=== PATIENT | male | born 2000 | race Two or more races ===

== ENCOUNTER 2022-12-23 11:58 | Observation (INO) ==
--- NOTE | 2022-12-23 12:10 | Emergency Department Note ---
Impression & Plan Knee effusion, right, Cellulitis of right leg ED Provider Note NAME: JOE COHEN AGE: 22 SEX: M : 2000 ARRIVES VIA: Walk-In INFORMANT: Patient, ED PROVIDER(S): Abel Haas MD CHIEF COMPLAINT: Knee pain and swelling MEDICAL DECISION MAKING: Patient presented due to concern for a knee pain and effusion. IV was established blood work obtained along with blood cultures and empiric Rocephin. I did place a page out to on-call orthopedist Dr. Goodson for evaluation of the patient given concern worsening symptoms in setting of recent knee arthrocentesis and antibiotic use. Bloodwork shows normal white count hemoglobin and platelet count. Kidney function is unremarkable. Glucose of 36. The patient related that he had gone light weightlifting this morning and did not eat. Patient was given an amp of D50. The patient does have elevated ESR CRP and procalcitonin. Vancomycin was ordered. Dr. Goodson does not recommend any washout does not believe the patient has septic arthritis but does believe the patient would benefit from admission with IV antibiotics. Patient was admitted to Dr. Goodson. Prior /Outside records reviewed: Did review prior orthopedic consultation from Dr. Law from December 17. The patient did have knee arthrocentesis completed at that time. I did review the patient's joint analysis which showed only 85 WBCs any polynuclear percentage of only 18%. Synovial color was pale yellow and clear in appearance. Differential diagnosis: Cellulitis, abscess, gout, pseudogout, septic arthritis among others were considered Diagnostics, as interpreted by me: ECG: None Cardiac monitoring: An order was placed for continuous cardiac monitoring. The monitor shows a rate of 67 with sinus rhythm. Patient was placed on pulse oximetry Medical decision rules: None Imaging studies: See below I informally reviewed the patient's knee x-ray which does not show obvious fracture dislocation HPI: Patient presents due to concern for right knee swelling and pain. The patient was seen here on the for similar symptoms and did have a knee arthrocentesis at that time and was placed on Bactrim. Since then the patient states that he was feeling unwell this past week with more systemic symptoms including body aches fevers and chills. Patient states that he does feel better today. Patient denies any injury or trauma to the area. Patient states he has been compliant with his antibiotics. The patient did not follow-up in clinic this week. 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 Patient denies any nausea vomiting no chest pain or shortness of breath. The patient has noticed some increasing redness and stiffness as well as swelling to the right knee and more distally down the leg. PAST MEDICAL HISTORY: See Below PAST SURGICAL HISTORY: See Below SOCIAL HISTORY: See Below HOME MEDICATIONS: See Below ALLERGIES: See Below VITALS: See Below PHYSICAL EXAMINATION: GENERAL: NAD, non-toxic. EYE EXAM: Normal conjunctiva. PERRL, no anisocoria and EOM's grossly intact w/o pain. OROPHARYNX: Moist mucus membranes, grossly normal dentition. Ears: Cauliflower ear noted. NECK: Supple, no nuchal rigidity, no adenopathy, non-tender. No signs of meningismus. FROM of the neck with good chin to chest and neck extension. No stridor. LUNGS: Clear to auscultation. Normal chest wall mechanics. HEART: NSR, no MRG. ABDOMEN: Abdomen soft, non-tender, no masses, no rebound or guarding. BACK: No CVA TTP. SKIN: No rashes and no bruising. UPPER EXTREMITIES: Upper extremities are grossly normal. LOWER EXTREMITIES: Right-sided knee effusion with erythema and swelling distally to the knee joint, good range of motion. NEURO EXAM: A&O x3, cranial nerves II-XII grossly intact, normal speech, moves all 4 extremities. Past Med/Surg History Medical History No significant past medical history Surgical History No pertinent past surgical history Social History Smoking Status: Never smoker Second Hand Exposure: No; Do You Dip or Chew Tobacco: No; Hx Alcohol Use: No Hx Substance Use: No Preferred Language: Belizean Communication Ability: Effective Pierogi Maker Required: No Beliefs That Will Affect Care: None Current Living Situation: Alone Other Information That Helps Us Care for You: No Feels Safe at Home: Yes Safety Concerns: Feels Safe At This Time Assistive Devices: Hospital Bed Allergies Allergies Allergy/AdvReac Type Severity Reaction Status Date / Time No Known Allergies Allergy Unverified 12/17/22 09:20 Home Meds Home Medications Medication Instructions Recorded Confirmed ibuprofen 200 mg tablet (Advil) 200 mg PO Q6H PRN Pain 12/23/22 12/23/22 Previous Rx's Medication Instructions Recorded mupirocin 2 % topical ointment 1 applic topical TID #22 grams 12/17/22 sulfamethoxazole 800 1 tab PO BID 7 days #14 tabs 12/17/22 mg-trimethoprim 160 mg tablet (Bactrim DS) Results & Data (ED) Vital Signs Vital Signs - 24 hr 12/23/22 12:05 12/23/22 13:18 12/23/22 13:18 Temperature 36.5 C Temperature Source Temporal Artery Scan Pulse Rate 91 H Pulse Rate [Apical] 71 Respiratory Rate 18 14 Respiratory Effort / Characteristics Non-Labored Spontaneous Respiratory Depth Normal Blood Pressure 113/71 Blood Pressure [Left Arm] 116/67 Blood Pressure Mean 85 Blood Pressure Mean [Left Arm] 83 Pulse Oximetry 100 99 Oxygen Delivery Method Room Air Room Air Room Air Sepsis Recent Fever Within 48 Hours No Sepsis New/Unexplained Change in Mental Status N/A Sepsis Action Taken by Nursing No Action Required Home Medications Current Medication List: was personally reviewed by me Laboratory Data Attestation: I reviewed the patient's lab results. 12/23/22 12:30 12/23/22 12:30 Lab Results 12/23/22 12/23/22 12/23/22 Range/Units 12:30 12:30 12:30 WBC 8.78 (4.8-10.8) K/ul RBC 4.50 L (4.70-6.10) M/uL Hgb 14.3 (14.0-18.0) g/dl Hct 40.6 L (42.0-52.0) % MCV 90.2 (80.0-100.0) fL MCH 31.8 (25.0-34.0) pg MCHC 35.2 (32.0-36.0) g/dL RDW Std Deviation 39.5 (36.4-46.3) fL RDW Coeff of Lisa 11.9 (11.5-14.5) % Plt Count 342 (130-400) K/uL MPV 9.1 L (9.4-12.4) fL Immature Gran % (Auto) 0.2 % Neut % (Auto) 72.2 % Lymph % (Auto) 17.5 % [place] % (Auto) 8.9 % Eos % (Auto) 1.0 % Baso % (Auto) 0.2 % Neut # (Auto) 6.33 (1.40-6.50) K/uL Lymph # (Auto) 1.54 (1.2-3.4) K/uL [place] # (Auto) 0.78 H (0.11-0.59) K/uL Eos # (Auto) 0.09 (0-0.50) K/uL Baso # (Auto) 0.02 (0-0.2) K/uL Immature Gran # (Auto) 0.02 (0.01-0.20) K/uL ESR (0-15) mm/hr Sodium 136 (136-145) mmol/L Potassium 4.7 (3.5-5.1) mmol/L Chloride 101 (98-107) mmol/L Carbon Dioxide 30 (21-32) mmol/L Anion Gap 5 (3-11) BUN 16 (6-23) mg/dl Creatinine 1.17 (0.6-1.4) mg/dl Est Cr Clr Drug Dosing 74.6 ml/min Est GFR ( Amer) 100.5 ml/min Est GFR (Non-Af Amer) 86.7 ml/min BUN/Creatinine Ratio 13.7 (10-20) Glucose 36 L* (70-99(Fasting)) mg/dl POC Glucose (70-99) mg/dl Lactate 1.4 (0.4-2.0) mmol/L Calcium 9.6 (8.6-10.3) mg/dl Magnesium 2.0 (1.7-2.4) mg/dl Total Bilirubin 0.8 (0.2-1.0) mg/dl Direct Bilirubin 0.2 (0-0.2) mg/dl AST 29 (13-39) U/L ALT 20 (7-52) U/L Alkaline Phosphatase 49 (34-104) U/L C-Reactive Protein 5.30 H (0-0.5) mg/dl Total Protein 7.8 (6.0-8.3) gm/dl Albumin 4.2 (3.4-5.0) gm/dl Procalcitonin (0-0.5) ng/ml 12/23/22 12/23/22 12/23/22 Range/Units 12:30 12:30 13:14 WBC (4.8-10.8) K/ul RBC (4.70-6.10) M/uL Hgb (14.0-18.0) g/dl Hct (42.0-52.0) % MCV (80.0-100.0) fL MCH (25.0-34.0) pg MCHC (32.0-36.0) g/dL RDW Std Deviation (36.4-46.3) fL RDW Coeff of Lisa (11.5-14.5) % Plt Count (130-400) K/uL MPV (9.4-12.4) fL Immature Gran % (Auto) % Neut % (Auto) % Lymph % (Auto) % [place] % (Auto) % Eos % (Auto) % Baso % (Auto) % Neut # (Auto) (1.40-6.50) K/uL Lymph # (Auto) (1.2-3.4) K/uL [place] # (Auto) (0.11-0.59) K/uL Eos # (Auto) (0-0.50) K/uL Baso # (Auto) (0-0.2) K/uL Immature Gran # (Auto) (0.01-0.20) K/uL ESR 37 H (0-15) mm/hr Sodium (136-145) mmol/L Potassium (3.5-5.1) mmol/L Chloride (98-107) mmol/L Carbon Dioxide (21-32) mmol/L Anion Gap (3-11) BUN (6-23) mg/dl Creatinine (0.6-1.4) mg/dl Est Cr Clr Drug Dosing ml/min Est GFR ( Amer) ml/min Est GFR (Non-Af Amer) ml/min BUN/Creatinine Ratio (10-20) Glucose (70-99(Fasting)) mg/dl POC Glucose 60 L* (70-99) mg/dl Lactate (0.4-2.0) mmol/L Calcium (8.6-10.3) mg/dl Magnesium (1.7-2.4) mg/dl Total Bilirubin (0.2-1.0) mg/dl Direct Bilirubin (0-0.2) mg/dl AST (13-39) U/L ALT (7-52) U/L Alkaline Phosphatase (34-104) U/L C-Reactive Protein (0-0.5) mg/dl Total Protein (6.0-8.3) gm/dl Albumin (3.4-5.0) gm/dl Procalcitonin 0.77 H (0-0.5) ng/ml 12/23/22 Range/Units 13:50 WBC (4.8-10.8) K/ul RBC (4.70-6.10) M/uL Hgb (14.0-18.0) g/dl Hct (42.0-52.0) % MCV (80.0-100.0) fL MCH (25.0-34.0) pg MCHC (32.0-36.0) g/dL RDW Std Deviation (36.4-46.3) fL RDW Coeff of Lisa (11.5-14.5) % Plt Count (130-400) K/uL MPV (9.4-12.4) fL Immature Gran % (Auto) % Neut % (Auto) % Lymph % (Auto) % [place] % (Auto) % Eos % (Auto) % Baso % (Auto) % Neut # (Auto) (1.40-6.50) K/uL Lymph # (Auto) (1.2-3.4) K/uL [place] # (Auto) (0.11-0.59) K/uL Eos # (Auto) (0-0.50) K/uL Baso # (Auto) (0-0.2) K/uL Immature Gran # (Auto) (0.01-0.20) K/uL ESR (0-15) mm/hr Sodium (136-145) mmol/L Potassium (3.5-5.1) mmol/L Chloride (98-107) mmol/L Carbon Dioxide (21-32) mmol/L Anion Gap (3-11) BUN (6-23) mg/dl Creatinine (0.6-1.4) mg/dl Est Cr Clr Drug Dosing ml/min Est GFR ( Amer) ml/min Est GFR (Non-Af Amer) ml/min BUN/Creatinine Ratio (10-20) Glucose (70-99(Fasting)) mg/dl POC Glucose 116 H (70-99) mg/dl Lactate (0.4-2.0) mmol/L Calcium (8.6-10.3) mg/dl Magnesium (1.7-2.4) mg/dl Total Bilirubin (0.2-1.0) mg/dl Direct Bilirubin (0-0.2) mg/dl AST (13-39) U/L ALT (7-52) U/L Alkaline Phosphatase (34-104) U/L C-Reactive Protein (0-0.5) mg/dl Total Protein (6.0-8.3) gm/dl Albumin (3.4-5.0) gm/dl Procalcitonin (0-0.5) ng/ml Administered Medications Discontinued Medications Dextrose (Dextrose 50% 50 Ml Syringe) 50 ml IV NOW ONE Stop: 12/23/22 13:18 Last Admin: 12/23/22 13:21 Dose: 50 ml Documented By: DEMARIO Sodium Chloride (Nss 1000ml) 1,000 mls @ 999 mls/hr IV .Q1H1M MARCUS Stop: 12/23/22 13:30 Last Infusion: 12/23/22 13:44 Dose: 0 mls/hr Documented By: Admin: 12/23/22 12:43 Dose: 999 mls/hr Documented By: DEMARIO Ceftriaxone Sodium (Rocephin) 2,000 mg in 70 mls @ 140 mls/hr IV NOW STA Stop: 12/23/22 12:49 Last Infusion: 12/23/22 13:17 Dose: 0 mls/hr Documented By: Admin: 12/23/22 12:47 Dose: 140 mls/hr Documented By: DEMARIO Vancomycin HCl 1,250 mg/ (Sodium Chloride) 525 mls @ 200 mls/hr IV NOW ONE Stop: 12/23/22 16:55 Last Admin: 12/23/22 14:47 Dose: 200 mls/hr Documented By: DEMARIO Imaging Data Radiologist's Impression: Knee X-Ray 12/23/22 13:00 XR knee RT 3V HISTORY: 22 years-old Male pain/swelling;redness acute pain and swelling of the right knee COMPARISON: 12/17/2022 TECHNIQUE: 3 views of the right knee FINDINGS: Moderate circumferential soft tissue swelling. No acute fracture, dislocation or large joint effusion. The joint spaces are well-preserved. IMPRESSION: Soft tissue swelling without acute osseous abnormality. ACT 112: Negative or not required by law. The above report was generated using voice recognition software. It may contain grammatical, syntax or spelling errors. Electronically signed by: Johnny Hunter M.D. 12/23/2022 1:25 PM Discharge Plan Visit Data Chief Complaint: Knee Injury/Pain Stated Complaint: R KNEE INFECTION ED Provider: Abel Haas Discharge Problem: Knee effusion, right, Cellulitis of right leg Patient Disposition: Admitted As Inpatient Discharge Instructions Interventions: ED Discharge Assessment Last Done: 12/23/22 16:03
[2022-12-23] MEDS ORDERED: cefTRIAXone SODIUM 2,000 MG/70 ML BAG IV STA (12:20)
[2022-12-23] MEDS ORDERED: SODIUM CHLORIDE 0.9% 1000ML 1,000 ML IV SCH (12:30)
[2022-12-23 12:59] LABS: Basophils # (auto) 0.02 K/uL (0-0.2); Basophils % (auto) 0.2 %; Eosinophils # (auto) 0.09 K/uL (0-0.50); Hematocrit (blood only) 40.6 % (42.0-52.0); Hemoglobin 14.3 g/dl (14.0-18.0); Immature Granulocytes # (auto) 0.02 K/uL (0.01-0.20); Immature Granulocytes % (auto) 0.2 %; Lymphocytes # (auto) 1.54 K/uL (1.2-3.4); Lymphocytes % (auto) 17.5 %; Mean Corpuscular Hemoglobin 31.8 pg (25.0-34.0); Mean Corpuscular Hgb Conc 35.2 g/dL (32.0-36.0); Mean Corpuscular Volume 90.2 fL (80.0-100.0); Mean Platelet Volume 9.1 fL (9.4-12.4); Monocytes # (auto) 0.78 K/uL (0.11-0.59); Monocytes % (auto) 8.9 %; Neutrophils # (auto) 6.33 K/uL (1.40-6.50); Neutrophils % (auto) 72.2 %; Platelet Count 342 K/uL (130-400); RDW Coefficient of Variation 11.9 % (11.5-14.5); RDW Standard Deviation 39.5 fL (36.4-46.3); White Blood Count 8.78 K/ul (4.8-10.8)
[2022-12-23 13:11] LABS: Albumin Level 4.2 gm/dl (3.4-5.0); BUN Creatinine Ratio 13.7 (10-20); Bilirubin Direct 0.2 mg/dl (0-0.2); Bilirubin,Total 0.8 mg/dl (0.2-1.0); Calcium 9.6 mg/dl (8.6-10.3); Creatinine Clr Calc Pharmacy 74.6 ml/min; Est GFR (African American) 100.5 ml/min; Est GFR (Non-African American) 86.7 ml/min; Potassium 4.7 mmol/L (3.5-5.1); Total Protein 7.8 gm/dl (6.0-8.3)
[2022-12-23] MEDS ORDERED: DEXTROSE 50% 50 ML SYRINGE IV ONE (13:17)
--- NOTE | 2022-12-23 13:28 | XRay Report ---
XR knee RT 3V HISTORY: 22 years-old Male pain/swelling;redness acute pain and swelling of the right knee COMPARISON: 12/17/2022 TECHNIQUE: 3 views of the right knee FINDINGS: Moderate circumferential soft tissue swelling. No acute fracture, dislocation or large joint effusion . The joint spaces are well-preserved. IMPRESSION: Soft tissue swelling without acute osseous abnormality. ACT 112: Negative or not required by law. The above report was generated using voice recognition software. It may contain grammatical, syntax o r spelling errors. Electronically signed by: Johnny Hunter M.D. 12/23/2022 1:25 PM
[2022-12-23 13:46] LABS: C Reactive Protein 5.3 mg/dl (0-0.5)
[2022-12-23] MEDS ORDERED: VANCOMYCIN CONSULT ACTIVE PRN ×3 (14:08→14:18)
[2022-12-23] MEDS ORDERED: VANCOMYCIN HCL 1,250 MG in SODIUM CHLORIDE 0.9% 500 ML IV ONE (14:18)
--- NOTE | 2022-12-23 14:19 | History & Physical Report ---
Date of Service December 23, 2022 Assessment & Plan (1) Cellulitis of right leg: Plan: Findings discussed. Afebrile. White count normal. Inflammatory markers elevated. Previous culture and blood culture negative. No gout. Does not look like Lyme. There is a history of MRSA infection but I do not see any focal MRSA abscess. There is no effusion in the knee or bursa. There is no fluid to aspirate. The knee is enlarged but I think that this is due to soft tissue edema and not a collection of purulent fluid. His range of motion is essentially full and not significantly painful. I think that he has cellulitis on the upper leg area either something that is broken through oral outpatient treatment or has arisen new. I would recommend that he be admitted to the hospital. Start him on intravenous antibiotics. Vancomycin and Rocephin. Elevate rest. We will continue to monitor. He may eat in the I do not see an indication for surgery. I do not think he needs any advanced imaging. X-rays are reviewed and show no evidence of effusion or bony abnormality there is no air within the soft tissues. He reports no injury to the right knee. Unlikely gout or pseudogout. Previous crystal analysis negative. Does not look like a Lyme. 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 history of prior staph and MRSA infection. Approximately 10 days ago he had a scratch in his left armpit which he states became infected. He developed a rash subsequent to that in his left armpit. He was then here to the emergency room December 17 because of right knee pain and swelling which began abruptly last Sunday or Sunday. There is no history of injury to the right knee. He reported having subjective fevers chills and sweats. He felt sick and had malaise. He came to the emergency room. The knee was aspirated by Dr. Law yielding 5 cc of normal-appearing joint fluid. Results of that showed no crystals. White blood cell count was within normal limits and the culture was no growth final. Blood cultures were also negative. His white blood cell count at that time was normal. His sed rate and C-reactive protein were normal or minimally elevated. He was discharged on oral Bactrim 1 pill twice a day. He reports that things were somewhat feeling better. However within the past 24 hours or so he has noted increased redness swelling and pain in the right upper leg which was a new finding. He again reports feeling chills sweats subjective fever malaise and increased pain and swelling. He came to the ER for reevaluation. He was using cold plunge. Lifting weights but not wrestling. At rest his pain is a 0 or 1. The pain is elevated with movement and in particular touching. Allergies Allergy/AdvReac Type Severity Reaction Status Date / Time No Known Allergies Allergy Unverified 12/17/22 09:20 Home Medications Medication Instructions Recorded Confirmed Type mupirocin 2 % topical ointment 1 applic topical TID #22 grams 12/17/22 12/23/22 Rx sulfamethoxazole 800 1 tab PO BID 7 days #14 tabs 12/17/22 12/23/22 Rx mg-trimethoprim 160 mg tablet (Bactrim DS) ibuprofen 200 mg tablet (Advil) 200 mg PO Q6H PRN Pain 12/23/22 12/23/22 History Past Med/Surg History Medical History No significant past medical history Social History Smoking Status: Never smoker Preferred Language: Scottish Feels Safe at Home: Yes Review of Systems Review of Systems: He is otherwise healthy. Physically fit. He did have a MRSA infection of his left thigh treated in [place] with a bedside I&D and was admitted for IV antibiotics. He has no medical allergies. He takes no medicines. Physical Exam Physical Exam: He is awake alert and oriented. He is able to arise independently and can ambulate around the exam room without any limp or significant increase in his leg pain. He does feel a feeling of pressure or swelling into the leg when it is gravity dependent. PT pulse 1+ DP pulse trace. Sensation intact to light touch throughout the foot. He has 5 out of 5 ankle and toe plantarflexion dorsiflexion inversion and eversion strength and 5 out of 5 right knee flexion and extension strength. There is full painless movement of the hip and ankle. Thigh and leg compartments are soft. Range of motion of the knee is 0-130 without significant difficulty. He can pull his knee further to get it to 145 degrees of flexion equal to the opposite side. There is enlargement of the right knee and upper leg area without pitting edema around the knee. He does have trace edema around the upper third of the right leg pretibial area. There is erythema on the upper half of the right leg mainly medial. There is no prepatellar bursal effusion. There is no significant intra-articular effusion. I palpate no fluid collection consistent with an abscess. There are no pustules and there is no drainage. There is tenderness to firmer palpation around the medial and lateral retinacula of the knee. No tenderness to palpation over the extensor mechanism quad tendon patella patellar tendon. Cruciates and collaterals are intact. Skin wrinkles are present around the knee but the skin over the upper leg is tighter and shinnier. MCL has trace laxity with firm endpoint. Knee otherwise stable Examination of the right axilla area reveals a healed scratch in the anterior axillary fold. There about a dozen healed 2 to 4 mm circular areas distal to that into the lateral chest area with dried skin there is no pustules or vesicles no erythema or swelling. Results & Data Results & Data Vital Signs (Past 12 Hours) Vital Signs Temp Pulse Pulse Resp BP BP Pulse Ox 12/23/22 13:18 71 14 116/67 99 12/23/22 13:18 12/23/22 12:05 36.5 C 91 H 18 113/71 100 O2 Del Method 12/23/22 13:18 Room Air 12/23/22 13:18 Room Air 12/23/22 12:05 Room Air Laboratory Results Laboratory Results WBC 8.78 K/ul (4.8-10.8) 12/23/22 12:30 RBC 4.50 M/uL (4.70-6.10) L 12/23/22 12:30 Hgb 14.3 g/dl (14.0-18.0) 12/23/22 12:30 Hct 40.6 % (42.0-52.0) L 12/23/22 12:30 MCV 90.2 fL (80.0-100.0) 12/23/22 12:30 MCH 31.8 pg (25.0-34.0) 12/23/22 12:30 MCHC 35.2 g/dL (32.0-36.0) 12/23/22 12:30 RDW Std Deviation 39.5 fL (36.4-46.3) 12/23/22 12:30 RDW Coeff of Lisa 11.9 % (11.5-14.5) 12/23/22 12:30 Plt Count 342 K/uL (130-400) 12/23/22 12:30 MPV 9.1 fL (9.4-12.4) L 12/23/22 12:30 Immature Gran % (Auto) 0.2 % 12/23/22 12:30 Neut % (Auto) 72.2 % 12/23/22 12:30 Lymph % (Auto) 17.5 % 12/23/22 12:30 [place] % (Auto) 8.9 % 12/23/22 12:30 Eos % (Auto) 1.0 % 12/23/22 12:30 Baso % (Auto) 0.2 % 12/23/22 12:30 Neut # (Auto) 6.33 K/uL (1.40-6.50) 12/23/22 12:30 Lymph # (Auto) 1.54 K/uL (1.2-3.4) 12/23/22 12:30 [place] # (Auto) 0.78 K/uL (0.11-0.59) H 12/23/22 12:30 Eos # (Auto) 0.09 K/uL (0-0.50) 12/23/22 12:30 Baso # (Auto) 0.02 K/uL (0-0.2) 12/23/22 12:30 Immature Gran # (Auto) 0.02 K/uL (0.01-0.20) 12/23/22 12:30 ESR 37 mm/hr (0-15) H 12/23/22 12:30 Sodium 136 mmol/L (136-145) 12/23/22 12:30 Potassium 4.7 mmol/L (3.5-5.1) 12/23/22 12:30 Chloride 101 mmol/L (98-107) 12/23/22 12:30 Carbon Dioxide 30 mmol/L (21-32) 12/23/22 12:30 Anion Gap 5 (3-11) 12/23/22 12:30 BUN 16 mg/dl (6-23) 12/23/22 12:30 Creatinine 1.17 mg/dl (0.6-1.4) 12/23/22 12:30 Est Cr Clr Drug Dosing 74.6 ml/min 12/23/22 12:30 Est GFR ( Amer) 100.5 ml/min 12/23/22 12:30 Est GFR (Non-Af Amer) 86.7 ml/min 12/23/22 12:30 BUN/Creatinine Ratio 13.7 (10-20) 12/23/22 12:30 Glucose 36 mg/dl (70-99(Fasting)) L* 12/23/22 12:30 POC Glucose 116 mg/dl (70-99) H 12/23/22 13:50 Lactate 1.4 mmol/L (0.4-2.0) 12/23/22 12:30 Calcium 9.6 mg/dl (8.6-10.3) 12/23/22 12:30 Magnesium 2.0 mg/dl (1.7-2.4) 12/23/22 12:30 Total Bilirubin 0.8 mg/dl (0.2-1.0) 12/23/22 12:30 Direct Bilirubin 0.2 mg/dl (0-0.2) 12/23/22 12:30 AST 29 U/L (13-39) 12/23/22 12:30 ALT 20 U/L (7-52) 12/23/22 12:30 Alkaline Phosphatase 49 U/L (34-104) 12/23/22 12:30 C-Reactive Protein 5.30 mg/dl (0-0.5) H 12/23/22 12:30 Total Protein 7.8 gm/dl (6.0-8.3) 12/23/22 12:30 Albumin 4.2 gm/dl (3.4-5.0) 12/23/22 12:30 Procalcitonin 0.77 ng/ml (0-0.5) H 12/23/22 12:30 Impressions Knee X-Ray 12/23/22 13:00 XR knee RT 3V HISTORY: 22 years-old Male pain/swelling;redness acute pain and swelling of the right knee COMPARISON: 12/17/2022 TECHNIQUE: 3 views of the right knee FINDINGS: Moderate circumferential soft tissue swelling. No acute fracture, dislocation or large joint effusion. The joint spaces are well-preserved. IMPRESSION: Soft tissue swelling without acute osseous abnormality. ACT 112: Negative or not required by law. The above report was generated using voice recognition software. It may contain grammatical, syntax or spelling errors. Electronically signed by: Johnny Hunter M.D. 12/23/2022 1:25 PM Code Status & VTE Plan VTE Prophylaxis Plan VTE Prophylaxis will be ordered: No Reason for no VTE drug order: Treatment not indicated
[2022-12-23] MEDS ORDERED: ALUMINUM/MAGNESIUM SUSP 30 ML UDC PO PRN (16:39)
[2022-12-23] MEDS ORDERED: ACETAMINOPHEN 325 MG TAB PO PRN (16:39)
[2022-12-23] MEDS ORDERED: KETOROLAC 30 MG/ML VIAL IV PRN (16:39)
[2022-12-23] MEDS ORDERED: MAGNESIUM HYDROXIDE SUSP 30 ML UDC PO PRN (16:39)
--- NOTE | 2022-12-23 16:55 | Pharmacy Report ---
Pharmacy PK ABX Note - Date of Service December 23, 2022 - Assessment and Plan Assessment 22 year old M receiving Vancomycin and Ceftriaxone for treatment of cellulitis. * Day #1 of antimicrobial therapy. Failed outpatient Bactrim DS. * Afebrile. No leukocytosis. SCr 1.17, unknown baseline. Lactate/procal normal. ESR/CRP elevated. * Blood cultures pending. Plan Vancomycin * Loading dose: 1250 mg IV x 1 * Maintenance dose: 1000 mg IV every 12 hours * Regimen is predicted to achieve target AUC/MANPREET of 400-600 mg/L.hr * Random level ordered for: 12/25/22 Ceftriaxone * 1000 mg IV every 24 hours Pharmacy will continue to follow and will adjust dose/frequency as necessary. Thank you. Pharmacy has transitioned to AUC monitoring for vancomycin. AUC/MANPREET is the preferred PK/PD target and is associated with decreased risk of nephrotoxicity compared to traditional trough targets.
[2022-12-23] MEDS: DOCUSATE SODIUM 100 MG CAP PO SCH (21:30)
[2022-12-23] MEDS: VANCOMYCIN HCL 1,000 MG in SODIUM CHLORIDE 0.9% 250 ML IV SCH (21:30)
--- NOTE | 2022-12-24 08:38 | Orthopedic Progress Note ---
Date of Service December 24, 2022 Assessment & Plan (1) Cellulitis of right leg: Plan: Findings discussed. Recommend continuing IV antibiotics. There is improvement but not complete resolution at this time. We will see need for operative intervention. Sterile prep with alcohol and Betadine. The right knee prepatellar bursa is aspirated yielding 19 cc of serosanguineous thin fluid. Not purulent. Preprocedural timeout was performed and verbal informed consent was obtained. Options risks and benefits were discussed. Sophie Baum witness the procedure. Fluid sent for Gram stain aerobic and anaerobic culture cell count with differential and crystal analysis. (2) Prepatellar bursitis, right knee: Admission and Anticipated Discharge Date Admission Date: December 23, 2022 Subjective Feels better. No pain at rest. Discomfort only when he stands. He believes less redness and swelling. Physical Exam Physical Exam: He is able to stand and walk without difficulty. There is full range of motion of the right knee. Intact active straight leg raise. The lateral sided knee tenderness has dissipated but there is still tenderness along the medial knee and medial upper leg. The swelling in the leg is less and the erythema in the upper right medial leg has dissipated. There is no intra-articular effusion but there is a small amount of fluid within the prepatellar bursa. I recommended aspiration and he agreed to proceed. Results & Data Vital Signs (Past 12 Hours) Vital Signs Temp Pulse Resp BP Pulse Ox O2 Del Method 12/23/22 21:10 37.0 C 70 16 110/56 L 98 Room Air Laboratory Results Laboratory Results WBC 8.78 K/ul (4.8-10.8) 12/23/22 12:30 RBC 4.50 M/uL (4.70-6.10) L 12/23/22 12:30 Hgb 14.3 g/dl (14.0-18.0) 12/23/22 12:30 Hct 40.6 % (42.0-52.0) L 12/23/22 12:30 MCV 90.2 fL (80.0-100.0) 12/23/22 12:30 MCH 31.8 pg (25.0-34.0) 12/23/22 12:30 MCHC 35.2 g/dL (32.0-36.0) 12/23/22 12:30 RDW Std Deviation 39.5 fL (36.4-46.3) 12/23/22 12:30 RDW Coeff of Lisa 11.9 % (11.5-14.5) 12/23/22 12:30 Plt Count 342 K/uL (130-400) 12/23/22 12:30 MPV 9.1 fL (9.4-12.4) L 12/23/22 12:30 Immature Gran % (Auto) 0.2 % 12/23/22 12:30 Neut % (Auto) 72.2 % 12/23/22 12:30 Lymph % (Auto) 17.5 % 12/23/22 12:30 [place] % (Auto) 8.9 % 12/23/22 12:30 Eos % (Auto) 1.0 % 12/23/22 12:30 Baso % (Auto) 0.2 % 12/23/22 12:30 Neut # (Auto) 6.33 K/uL (1.40-6.50) 12/23/22 12:30 Lymph # (Auto) 1.54 K/uL (1.2-3.4) 12/23/22 12:30 [place] # (Auto) 0.78 K/uL (0.11-0.59) H 12/23/22 12:30 Eos # (Auto) 0.09 K/uL (0-0.50) 12/23/22 12:30 Baso # (Auto) 0.02 K/uL (0-0.2) 12/23/22 12:30 Immature Gran # (Auto) 0.02 K/uL (0.01-0.20) 12/23/22 12:30 ESR 37 mm/hr (0-15) H 12/23/22 12:30 Sodium 136 mmol/L (136-145) 12/23/22 12:30 Potassium 4.7 mmol/L (3.5-5.1) 12/23/22 12:30 Chloride 101 mmol/L (98-107) 12/23/22 12:30 Carbon Dioxide 30 mmol/L (21-32) 12/23/22 12:30 Anion Gap 5 (3-11) 12/23/22 12:30 BUN 16 mg/dl (6-23) 12/23/22 12:30 Creatinine 1.17 mg/dl (0.6-1.4) 12/23/22 12:30 Est Cr Clr Drug Dosing 74.6 ml/min 12/23/22 12:30 Est GFR ( Amer) 100.5 ml/min 12/23/22 12:30 Est GFR (Non-Af Amer) 86.7 ml/min 12/23/22 12:30 BUN/Creatinine Ratio 13.7 (10-20) 12/23/22 12:30 Glucose 36 mg/dl (70-99(Fasting)) L* 12/23/22 12:30 POC Glucose 116 mg/dl (70-99) H 12/23/22 13:50 Lactate 1.4 mmol/L (0.4-2.0) 12/23/22 12:30 Calcium 9.6 mg/dl (8.6-10.3) 12/23/22 12:30 Magnesium 2.0 mg/dl (1.7-2.4) 12/23/22 12:30 Total Bilirubin 0.8 mg/dl (0.2-1.0) 12/23/22 12:30 Direct Bilirubin 0.2 mg/dl (0-0.2) 12/23/22 12:30 AST 29 U/L (13-39) 12/23/22 12:30 ALT 20 U/L (7-52) 12/23/22 12:30 Alkaline Phosphatase 49 U/L (34-104) 12/23/22 12:30 C-Reactive Protein 5.30 mg/dl (0-0.5) H 12/23/22 12:30 Total Protein 7.8 gm/dl (6.0-8.3) 12/23/22 12:30 Albumin 4.2 gm/dl (3.4-5.0) 12/23/22 12:30 Procalcitonin 0.77 ng/ml (0-0.5) H 12/23/22 12:30 Impressions Knee X-Ray 12/23/22 13:00 XR knee RT 3V HISTORY: 22 years-old Male pain/swelling;redness acute pain and swelling of the right knee COMPARISON: 12/17/2022 TECHNIQUE: 3 views of the right knee FINDINGS: Moderate circumferential soft tissue swelling. No acute fracture, dislocation or large joint effusion. The joint spaces are well-preserved. IMPRESSION: Soft tissue swelling without acute osseous abnormality. ACT 112: Negative or not required by law. The above report was generated using voice recognition software. It may contain grammatical, syntax or spelling errors. Electronically signed by: Johnny Hunter M.D. 12/23/2022 1:25 PM
[2022-12-24 09:01] LABS: Creatinine Clr Calc Pharmacy 105.4 ml/min
[2022-12-24 09:14] LABS: Appearance Synovial Fluid Hazy; Color Synovial Fluid Orange; Mononuclear WBC Synovial 33.9 %; Polynuclear WBC Synovial 66.1 %; RBC Synovial Fluid Auto 12000 /uL; Source Synovial Fluid Knee; WBC Synovial Fluid Auto 2996 /ul (0-200)
[2022-12-24] MEDS: VANCOMYCIN HCL 1,000 MG in SODIUM CHLORIDE 0.9% 250 ML IV SCH (09:17)
[2022-12-24] MEDS: DOCUSATE SODIUM 100 MG CAP PO SCH ×2 (09:18→19:58)
[2022-12-24] MEDS: cefTRIAXone SODIUM 1,000 MG in DEXTROSE 5% 50 ML IV SCH (12:04)
[2022-12-24] MEDS ORDERED: VANCOMYCIN HCL 1,000 MG in SODIUM CHLORIDE 0.9% 250 ML IV SCH (22:00)
[2022-12-25 05:58] LABS: Creatinine Clr Calc Pharmacy 120.8 ml/min; Est GFR (African American) 143.5 ml/min; Est GFR (Non-African American) 123.8 ml/min
--- NOTE | 2022-12-25 08:29 | Pharmacy Report ---
Pharmacy PK ABX Note - Date of Service December 25, 2022 - Assessment and Plan Assessment 22 year old M receiving Vancomycin and Ceftriaxone for treatment of cellulitis. * Day #3 of antimicrobial therapy. Failed outpatient Bactrim DS. * Afebrile. No leukocytosis. SCr 0.94 mg/dL today (down from 1.17 mg/dL yesterday). Lactate/procal normal. ESR/CRP elevated. * Blood cultures (12/23) - no growth to date, knee culture (12/23) pending * Non-purulent serosanguineous fluid aspirated from knee Plan Vancomycin * Current regimen: 1000 mg IV every 12 hours * Random level obtained 12/25/22 resulted as 5.7 mcg/mL. This is predicted to achieve target AUC/MANPREET of 400-600 mg/L.hr * Predicted AUC at steady state: 282 mg/L.hr * Change to 1250 mg IV every 8 hours * Repeat random level ordered for: 12/27/22 Ceftriaxone * 1000 mg IV every 24 hours Pharmacy will continue to follow and will adjust dose/frequency as necessary. Thank you. Pharmacy has transitioned to AUC monitoring for vancomycin. AUC/MANPREET is the preferred PK/PD target and is associated with decreased risk of nephrotoxicity compared to traditional trough targets.
[2022-12-25] MEDS: DOCUSATE SODIUM 100 MG CAP PO SCH ×2 (08:39→20:51)
[2022-12-25] MEDS: VANCOMYCIN HCL 1,250 MG in SODIUM CHLORIDE 0.9% 250 ML IV SCH ×3 (08:42→23:51)
--- NOTE | 2022-12-25 09:58 | Orthopedic Progress Note ---
Date of Service December 25, 2022 Assessment & Plan (1) Prepatellar bursitis, right knee: Plan: Findings discussed. Improving. Still some mild swelling tenderness and redness. I would advise another day of IV antibiotics and elevation. Hopefully further treatment will prevent relapse. Especially in light of his failure of outpatient treatment. Discussed with him that the fluid drained from the prepatellar bursa showed 3000 white blood cells which is indicative of inflammation and not infection. The culture is pending there. Crystal analysis of that fluid was negative. I think that he has a trace amount of fluid in the bursa and the knee from a reactive component rather than a direct infectious component. He should be able to fly later this week. He will have the ability to have medical attention in [place] through their [employer] training center. If he has any problems with worsening symptoms pain redness swelling he should let them be aware. He will be discharged on oral antibiotic. We will reassess him tomorrow and determine appropriateness for discharge after further intravenous antibiotics here. We discussed the risk of blood clots after traveling and he will get up and move around frequently and take aspirin 325 mg p.o. twice daily for DVT prophylaxis the day before and the day of traveling. I will follow-up with him next week when he returns. He should be back next Sunday and I can see him on Sunday. Present on Admission?: Yes (2) Cellulitis of right leg: Present on Admission?: Yes Admission and Anticipated Discharge Date Admission Date: December 23, 2022 Subjective Improved. No pain at rest. When he stands he feels pressure in the front of his knee. Physical Exam Physical Exam: There is full painless range of motion. She does have a trace intra-articular effusion today and a trace prepatellar bursal effusion. There is faint if any redness over the upper medial pretibial area. No erythema around the knee. Induration and swelling are resolving. There still is some tight shiny skin over the upper pretibial area. The foot is not swollen. There is trace edema over the upper leg. The knee shows intact skin wrinkles with less edema. The medial lateral sides of the knee are not tender however he still has some tenderness over the upper medial pretibial area. Results & Data Vital Signs (Past 12 Hours) Vital Signs Temp Pulse Resp BP Pulse Ox O2 Del Method 12/25/22 07:53 36.5 C 58 L 16 106/55 L 99 Room Air Laboratory Results Laboratory Results WBC 8.78 K/ul (4.8-10.8) 12/23/22 12:30 RBC 4.50 M/uL (4.70-6.10) L 12/23/22 12:30 Hgb 14.3 g/dl (14.0-18.0) 12/23/22 12:30 Hct 40.6 % (42.0-52.0) L 12/23/22 12:30 MCV 90.2 fL (80.0-100.0) 12/23/22 12:30 MCH 31.8 pg (25.0-34.0) 12/23/22 12:30 MCHC 35.2 g/dL (32.0-36.0) 12/23/22 12:30 RDW Std Deviation 39.5 fL (36.4-46.3) 12/23/22 12:30 RDW Coeff of Lisa 11.9 % (11.5-14.5) 12/23/22 12:30 Plt Count 342 K/uL (130-400) 12/23/22 12:30 MPV 9.1 fL (9.4-12.4) L 12/23/22 12:30 Immature Gran % (Auto) 0.2 % 12/23/22 12:30 Neut % (Auto) 72.2 % 12/23/22 12:30 Lymph % (Auto) 17.5 % 12/23/22 12:30 [place] % (Auto) 8.9 % 12/23/22 12:30 Eos % (Auto) 1.0 % 12/23/22 12:30 Baso % (Auto) 0.2 % 12/23/22 12:30 Neut # (Auto) 6.33 K/uL (1.40-6.50) 12/23/22 12:30 Lymph # (Auto) 1.54 K/uL (1.2-3.4) 12/23/22 12:30 [place] # (Auto) 0.78 K/uL (0.11-0.59) H 12/23/22 12:30 Eos # (Auto) 0.09 K/uL (0-0.50) 12/23/22 12:30 Baso # (Auto) 0.02 K/uL (0-0.2) 12/23/22 12:30 Immature Gran # (Auto) 0.02 K/uL (0.01-0.20) 12/23/22 12:30 ESR 37 mm/hr (0-15) H 12/23/22 12:30 Sodium 136 mmol/L (136-145) 12/23/22 12:30 Potassium 4.7 mmol/L (3.5-5.1) 12/23/22 12:30 Chloride 101 mmol/L (98-107) 12/23/22 12:30 Carbon Dioxide 30 mmol/L (21-32) 12/23/22 12:30 Anion Gap 5 (3-11) 12/23/22 12:30 BUN 16 mg/dl (6-23) 12/23/22 12:30 Creatinine 0.82 mg/dl (0.6-1.4) 12/25/22 05:20 Est Cr Clr Drug Dosing 120.8 ml/min 12/25/22 05:20 Est GFR ( Amer) 143.5 ml/min 12/25/22 05:20 Est GFR (Non-Af Amer) 123.8 ml/min 12/25/22 05:20 BUN/Creatinine Ratio 13.7 (10-20) 12/23/22 12:30 Glucose 36 mg/dl (70-99(Fasting)) L* 12/23/22 12:30 POC Glucose 116 mg/dl (70-99) H 12/23/22 13:50 Lactate 1.4 mmol/L (0.4-2.0) 12/23/22 12:30 Calcium 9.6 mg/dl (8.6-10.3) 12/23/22 12:30 Magnesium 2.0 mg/dl (1.7-2.4) 12/23/22 12:30 Total Bilirubin 0.8 mg/dl (0.2-1.0) 12/23/22 12:30 Direct Bilirubin 0.2 mg/dl (0-0.2) 12/23/22 12:30 AST 29 U/L (13-39) 12/23/22 12:30 ALT 20 U/L (7-52) 12/23/22 12:30 Alkaline Phosphatase 49 U/L (34-104) 12/23/22 12:30 C-Reactive Protein 5.30 mg/dl (0-0.5) H 12/23/22 12:30 Total Protein 7.8 gm/dl (6.0-8.3) 12/23/22 12:30 Albumin 4.2 gm/dl (3.4-5.0) 12/23/22 12:30 Procalcitonin 0.77 ng/ml (0-0.5) H 12/23/22 12:30 Fluid Comment 12/24/22 08:15 Synovial Source Knee 12/24/22 08:15 Synovial Color [place] 12/24/22 08:15 Synovial Appearance Hazy 12/24/22 08:15 Synovial WBC (Auto) 2996 /ul (0-200) H 12/24/22 08:15 Synovial RBC (Auto) 88898 /uL 12/24/22 08:15 Synovial Polynuclear % 66.1 % 12/24/22 08:15 Synovial Mononuclear % 33.9 % 12/24/22 08:15 Synovial Crystals 12/24/22 08:15 Random Vancomycin 5.7 mcg/ml (10-20) L 12/25/22 05:20 Impressions Knee X-Ray 12/23/22 13:00 XR knee RT 3V HISTORY: 22 years-old Male pain/swelling;redness acute pain and swelling of the right knee COMPARISON: 12/17/2022 TECHNIQUE: 3 views of the right knee FINDINGS: Moderate circumferential soft tissue swelling. No acute fracture, dislocation or large joint effusion. The joint spaces are well-preserved. IMPRESSION: Soft tissue swelling without acute osseous abnormality. ACT 112: Negative or not required by law. The above report was generated using voice recognition software. It may contain grammatical, syntax or spelling errors. Electronically signed by: Johnny Hunter M.D. 12/23/2022 1:25 PM
[2022-12-25] MEDS: cefTRIAXone SODIUM 1,000 MG in DEXTROSE 5% 50 ML IV SCH (12:01)
[2022-12-26 07:58] LABS: Creatinine Clr Calc Pharmacy 119.4 ml/min; Est GFR (African American) 142.7 ml/min; Est GFR (Non-African American) 123.2 ml/min
[2022-12-26] MEDS: VANCOMYCIN HCL 1,250 MG in SODIUM CHLORIDE 0.9% 250 ML IV SCH (08:56)
[2022-12-26] MEDS: DOCUSATE SODIUM 100 MG CAP PO SCH (08:57)
--- NOTE | 2022-12-26 09:19 | Orthopedic Progress Note ---
Date of Service December 26, 2022 Assessment & Plan (1) Prepatellar bursitis, right knee: Plan: Weightbearing as tolerated No growth on fluid or blood cultures Ice with easy wrap Compression with a knee sleeve for Tubigrip Plan is to discharge today with oral antibiotics DVT prophylaxis with 325 mg aspirin twice daily Pain control and inflammation relief with p.o. medication Follow-up with Dr. Goodson next Sunday as scheduled With questions contact our clinic at [phone] (2) Cellulitis of right leg: Admission and Anticipated Discharge Date Admission Date: December 23, 2022 Subjective This 22-year-old male is seen this morning for right knee swelling due to prepatellar bursitis. Aspiration was done and at bedside by Dr. Goodson. There has been no growth in the fluid or blood cultures as of yet. Patient states that the pain and swelling is much better today. He denies fever, chills, sweats, nausea, vomiting, diarrhea or difficulty voiding. He also did not denies any fatigue or malaise. He states that he is received his IV antibiotics. He is anxious to be discharged because he is traveling to [place] in the upcoming days. He plans on returning to the area next Sunday or . Review of Systems Review of Systems: All systems reviewed & are unremarkable except as noted in Subjective Physical Exam Physical Exam: Right knee: Patient has trace effusion over the anterior aspect of the knee but no tenderness, erythema or warmth. Range of motion is from 0 degrees of extension to 140 degrees of flexion. He has visible varus malalignment. There is no laxity with varus or valgus stressing. Quad strength is 5 out of 5. He is able to perform active straight leg raise test actively dorsi and plantarflex foot. He is neurovascular intact in the right lower extremity. Results & Data Vital Signs (Past 12 Hours) Vital Signs Temp Pulse Resp BP Pulse Ox O2 Del Method 12/26/22 08:11 36.5 C 61 16 115/60 98 Room Air Diagnostic Findings Laboratory Results WBC 8.78 K/ul (4.8-10.8) 12/23/22 12:30 RBC 4.50 M/uL (4.70-6.10) L 12/23/22 12:30 Hgb 14.3 g/dl (14.0-18.0) 12/23/22 12:30 Hct 40.6 % (42.0-52.0) L 12/23/22 12:30 MCV 90.2 fL (80.0-100.0) 12/23/22 12:30 MCH 31.8 pg (25.0-34.0) 12/23/22 12:30 MCHC 35.2 g/dL (32.0-36.0) 12/23/22 12:30 RDW Std Deviation 39.5 fL (36.4-46.3) 12/23/22 12:30 RDW Coeff of Lisa 11.9 % (11.5-14.5) 12/23/22 12:30 Plt Count 342 K/uL (130-400) 12/23/22 12:30 MPV 9.1 fL (9.4-12.4) L 12/23/22 12:30 Immature Gran % (Auto) 0.2 % 12/23/22 12:30 Neut % (Auto) 72.2 % 12/23/22 12:30 Lymph % (Auto) 17.5 % 12/23/22 12:30 [place] % (Auto) 8.9 % 12/23/22 12:30 Eos % (Auto) 1.0 % 12/23/22 12:30 Baso % (Auto) 0.2 % 12/23/22 12:30 Neut # (Auto) 6.33 K/uL (1.40-6.50) 12/23/22 12:30 Lymph # (Auto) 1.54 K/uL (1.2-3.4) 12/23/22 12:30 [place] # (Auto) 0.78 K/uL (0.11-0.59) H 12/23/22 12:30 Eos # (Auto) 0.09 K/uL (0-0.50) 12/23/22 12:30 Baso # (Auto) 0.02 K/uL (0-0.2) 12/23/22 12:30 Immature Gran # (Auto) 0.02 K/uL (0.01-0.20) 12/23/22 12:30 ESR 37 mm/hr (0-15) H 12/23/22 12:30 Sodium 136 mmol/L (136-145) 12/23/22 12:30 Potassium 4.7 mmol/L (3.5-5.1) 12/23/22 12:30 Chloride 101 mmol/L (98-107) 12/23/22 12:30 Carbon Dioxide 30 mmol/L (21-32) 12/23/22 12:30 Anion Gap 5 (3-11) 12/23/22 12:30 BUN 16 mg/dl (6-23) 12/23/22 12:30 Creatinine 0.83 mg/dl (0.6-1.4) 12/26/22 06:53 Est Cr Clr Drug Dosing 119.4 ml/min 12/26/22 06:53 Est GFR ( Amer) 142.7 ml/min 12/26/22 06:53 Est GFR (Non-Af Amer) 123.2 ml/min 12/26/22 06:53 BUN/Creatinine Ratio 13.7 (10-20) 12/23/22 12:30 Glucose 36 mg/dl (70-99(Fasting)) L* 12/23/22 12:30 POC Glucose 116 mg/dl (70-99) H 12/23/22 13:50 Lactate 1.4 mmol/L (0.4-2.0) 12/23/22 12:30 Calcium 9.6 mg/dl (8.6-10.3) 12/23/22 12:30 Magnesium 2.0 mg/dl (1.7-2.4) 12/23/22 12:30 Total Bilirubin 0.8 mg/dl (0.2-1.0) 12/23/22 12:30 Direct Bilirubin 0.2 mg/dl (0-0.2) 12/23/22 12:30 AST 29 U/L (13-39) 12/23/22 12:30 ALT 20 U/L (7-52) 12/23/22 12:30 Alkaline Phosphatase 49 U/L (34-104) 12/23/22 12:30 C-Reactive Protein 5.30 mg/dl (0-0.5) H 12/23/22 12:30 Total Protein 7.8 gm/dl (6.0-8.3) 12/23/22 12:30 Albumin 4.2 gm/dl (3.4-5.0) 12/23/22 12:30 Procalcitonin 0.77 ng/ml (0-0.5) H 12/23/22 12:30 Fluid Comment 12/24/22 08:15 Synovial Source Knee 12/24/22 08:15 Synovial Color [place] 12/24/22 08:15 Synovial Appearance Hazy 12/24/22 08:15 Synovial WBC (Auto) 2996 /ul (0-200) H 12/24/22 08:15 Synovial RBC (Auto) 11335 /uL 12/24/22 08:15 Synovial Polynuclear % 66.1 % 12/24/22 08:15 Synovial Mononuclear % 33.9 % 12/24/22 08:15 Synovial Crystals 12/24/22 08:15 Random Vancomycin 5.7 mcg/ml (10-20) L 12/25/22 05:20 Impressions Knee X-Ray 12/23/22 13:00 XR knee RT 3V HISTORY: 22 years-old Male pain/swelling;redness acute pain and swelling of the right knee COMPARISON: 12/17/2022 TECHNIQUE: 3 views of the right knee FINDINGS: Moderate circumferential soft tissue swelling. No acute fracture, dislocation or large joint effusion. The joint spaces are well-preserved. IMPRESSION: Soft tissue swelling without acute osseous abnormality. ACT 112: Negative or not required by law. The above report was generated using voice recognition software. It may contain grammatical, syntax or spelling errors. Electronically signed by: Johnny Hunter M.D. 12/23/2022 1:25 PM
--- NOTE | 2022-12-26 16:19 | Discharge Summary ---
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 history of prior staph and MRSA infection. Approximately 10 days ago he had a scratch in his left armpit which he states became infected. He developed a rash subsequent to that in his left armpit. He was then here to the emergency room December 17 because of right knee pain and swelling which began abruptly last Sunday or Sunday. There is no history of injury to the right knee. He reported having subjective fevers chills and sweats. He felt sick and had malaise. He came to the emergency room. The knee was aspirated by Dr. Law yielding 5 cc of normal-appearing joint fluid. Results of that showed no crystals. White blood cell count was within normal limits and the culture was no growth final. Blood cultures were also negative. His white blood cell count at that time was normal. His sed rate and C-reactive protein were normal or minimally elevated. He was discharged on oral Bactrim 1 pill twice a day. He reports that things were somewhat feeling better. However within the past 24 hours or so he has noted increased redness swelling and pain in the right upper leg which was a new finding. He again reports feeling chills sweats subjective fever malaise and increased pain and swelling. He came to the ER for reevaluation. He was using cold plunge. Lifting weights but not wrestling. At rest his pain is a 0 or 1. The pain is elevated with movement and in particular touching. Specialty Data Orthopedic Microbiology 12/23/22 12:41 Aerobic Blood Culture - Preliminary Blood No growth in Aerobic bottle after 48 hours. Anaerobic Blood Culture - Preliminary No growth in Anaerobic bottle after 48 hours. 12/23/22 12:30 Aerobic Blood Culture - Preliminary Blood No growth in Aerobic bottle after 48 hours. Anaerobic Blood Culture - Preliminary No growth in Anaerobic bottle after 48 hours. 12/26/22 Range/Units 06:53 Creatinine 0.83 (0.6-1.4) mg/dl Est Cr Clr Drug Dosing 119.4 ml/min Est GFR ( Amer) 142.7 ml/min Est GFR (Non-Af Amer) 123.2 ml/min Laboratory Results WBC 8.78 K/ul (4.8-10.8) 12/23/22 12:30 RBC 4.50 M/uL (4.70-6.10) L 12/23/22 12:30 Hgb 14.3 g/dl (14.0-18.0) 12/23/22 12:30 Hct 40.6 % (42.0-52.0) L 12/23/22 12:30 MCV 90.2 fL (80.0-100.0) 12/23/22 12: MCH 31.8 pg (25.0-34.0) 12/23/22 12: MCHC 35.2 g/dL (32.0-36.0) 12/23/22 12:30 RDW Std Deviation 39.5 fL (36.4-46.3) 12/23/22 12: RDW Coeff of Lisa 11.9 % (11.5-14.5) 12/23/22 12: Plt Count 342 K/uL (130-400) 12/23/22 12: MPV 9.1 fL (9.4-12.4) L 12/23/22 12:30 Immature Gran % (Auto) 0.2 % 12/23/22 12:30 Neut % (Auto) 72.2 % 12/23/22 12:30 Lymph % (Auto) 17.5 % 12/23/22 12:30 [place] % (Auto) 8.9 % 12/23/22 12:30 Eos % (Auto) 1.0 % 12/23/22 12:30 Baso % (Auto) 0.2 % 12/23/22 12:30 Neut # (Auto) 6.33 K/uL (1.40-6.50) 12/23/22 12:30 Lymph # (Auto) 1.54 K/uL (1.2-3.4) 12/23/22 12:30 [place] # (Auto) 0.78 K/uL (0.11-0.59) H 12/23/22 12:30 Eos # (Auto) 0.09 K/uL (0-0.50) 12/23/22 12:30 Baso # (Auto) 0.02 K/uL (0-0.2) 12/23/22 12:30 Immature Gran # (Auto) 0.02 K/uL (0.01-0.20) 12/23/22 12:30 ESR 37 mm/hr (0-15) H 12/23/22 12:30 Sodium 136 mmol/L (136-145) 12/23/22 12:30 Potassium 4.7 mmol/L (3.5-5.1) 12/23/22 12:30 Chloride 101 mmol/L (98-107) 12/23/22 12:30 Carbon Dioxide 30 mmol/L (21-32) 12/23/22 12:30 Anion Gap 5 (3-11) 12/23/22 12:30 BUN 16 mg/dl (6-23) 12/23/22 12:30 Creatinine 0.83 mg/dl (0.6-1.4) 12/26/22 06:53 Est Cr Clr Drug Dosing 119.4 ml/min 12/26/22 06:53 Est GFR ( Amer) 142.7 ml/min 12/26/22 06:53 Est GFR (Non-Af Amer) 123.2 ml/min 12/26/22 06:53 BUN/Creatinine Ratio 13.7 (10-20) 12/23/22 12:30 Glucose 36 mg/dl (70-99(Fasting)) L* 12/23/22 12:30 POC Glucose 116 mg/dl (70-99) H 12/23/22 13:50 Lactate 1.4 mmol/L (0.4-2.0) 12/23/22 12:30 Calcium 9.6 mg/dl (8.6-10.3) 12/23/22 12:30 Magnesium 2.0 mg/dl (1.7-2.4) 12/23/22 12:30 Total Bilirubin 0.8 mg/dl (0.2-1.0) 12/23/22 12:30 Direct Bilirubin 0.2 mg/dl (0-0.2) 12/23/22 12:30 AST 29 U/L (13-39) 12/23/22 12:30 ALT 20 U/L (7-52) 12/23/22 12:30 Alkaline Phosphatase 49 U/L (34-104) 12/23/22 12:30 C-Reactive Protein 5.30 mg/dl (0-0.5) H 12/23/22 12:30 Total Protein 7.8 gm/dl (6.0-8.3) 12/23/22 12:30 Albumin 4.2 gm/dl (3.4-5.0) 12/23/22 12:30 Procalcitonin 0.77 ng/ml (0-0.5) H 12/23/22 12:30 Fluid Comment 12/24/22 08:15 Synovial Source Knee 12/24/22 08:15 Synovial Color [place] 12/24/22 08:15 Synovial Appearance Hazy 12/24/22 08:15 Synovial WBC (Auto) 2996 /ul (0-200) H 12/24/22 08:15 Synovial RBC (Auto) 97973 /uL 12/24/22 08:15 Synovial Polynuclear % 66.1 % 12/24/22 08:15 Synovial Mononuclear % 33.9 % 12/24/22 08:15 Synovial Crystals 12/24/22 08:15 Random Vancomycin 5.7 mcg/ml (10-20) L 12/25/22 05:20 Impressions Knee X-Ray 12/23/22 13:00 XR knee RT 3V HISTORY: 22 years-old Male pain/swelling;redness acute pain and swelling of the right knee COMPARISON: 12/17/2022 TECHNIQUE: 3 views of the right knee FINDINGS: Moderate circumferential soft tissue swelling. No acute fracture, dislocation or large joint effusion. The joint spaces are well-preserved. IMPRESSION: Soft tissue swelling without acute osseous abnormality. ACT 112: Negative or not required by law. The above report was generated using voice recognition software. It may contain grammatical, syntax or spelling errors. Electronically signed by: Johnny Hunter M.D. 12/23/2022 1:25 PM Discharge Data Consultations 12/23/22 14:18 ED Decision to Admit Stat Procedures Performed aspiration of right pre patella bursa Hospital Course (1) Prepatellar bursitis, right knee: Weightbearing as tolerated No growth on fluid or blood cultures Ice with easy wrap Compression with a knee sleeve for Tubigrip Plan is to discharge today with oral antibiotics DVT prophylaxis with 325 mg aspirin twice daily Pain control and inflammation relief with p.o. medication Follow-up with Dr. Goodson next Sunday as scheduled With questions contact our clinic at [phone] (2) Cellulitis of right leg:
[2022-12-27] MEDS ORDERED: VANCOMYCIN LEVEL ONE ×2 (04:44→07:30)
== END 2022-12-26 11:02 | disposition home or self-care (01) ==
LOC: 3W 11:58 → ED 11:58 → 3W 16:03